=== PATIENT | female | born 1985 | race Caucasian/White ===

== ENCOUNTER 2020-01-01 08:44 | Emergency (ER) | payer MEDICAID ==
[~2020-01-01] VITALS: Ht 160 cm; Wt 56.2 kg
[2020-01-01 08:55] VITALS: BP_SYST 142
--- NOTE | 2020-01-01 09:04 | NUR ---
Patient to ER bed 5 to gown for evaluation. Side rails up. Report given to MASON Conteh.
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
--- NOTE | 2020-01-01 09:06 | NUR ---
ER Dr. Chung Teran at bedside examining patient.
--- NOTE | 2020-01-01 09:15 | NUR ---
X-ray done at bedside as ordered by Dr. Chung Teran. Patient tolerated the procedure well.
--- NOTE | 2020-01-01 09:20 | NUR ---
administrative technician at bedside collecting blood specimen as ordered by Dr. Chung Teran. Patient tolerated the procedure well.
[2020-01-01 09:57] LABS: BASOPHILS % (AUTO) 0.2 % (0.0-2.0); EOSINOPHILS % (AUTO) 0.1 % (0.0-4.0); HEMATOCRIT 35.4 % (36-48); HEMOGLOBIN 11.6 g/dL (12.0-16.0); LYMPHOCYTES # (AUTO) 1.4 K/uL (1.0-5.5); LYMPHOCYTES % (AUTO) 20.1 % (20.5-51.5); MEAN CORPUSCULAR HEMOGLOBIN 27 pg (27-31); MEAN CORPUSCULAR HGB CONC 33 % (32-36); MEAN CORPUSCULAR VOLUME 82 fL (79.0-98.0); MONOCYTES # (AUTO) 0.5 K/uL (0.0-1.0); MONOCYTES % (AUTO) 7.3 % (1.7-9.3); NEUTROPHILS # (AUTO) 4.9 K/uL (1.8-7.7); NEUTROPHILS % (AUTO) 72.3 % (40.0-70.0); PLATELET COUNT (AUTO) 199 K/uL (130-430); RED BLOOD CELL COUNT(AUTO) 4.33 MIL/uL (4.2-6.2); RED CELL DISTRIBUTION WIDTH 17.6 % (9.0-15.0); WHITE BLOOD COUNT (AUTO) 6.8 K/uL (4.8-10.8)
[2020-01-01 10:04] LABS: INR 1.3 (0.8-1.2); PROTHROMBIN TIME 13.3 SECS (9.5-12.5)
[2020-01-01 10:14] LABS: ANION GAP 11 (5-15); CALCIUM 8.9 mg/dL (8.4-11.0); CHLORIDE 104 mmol/L (98-107); CREATININE 0.67 mg/dL (0.55-1.30); GLUCOSE 102 mg/dL (70-99); POTASSIUM 3.6 mmol/L (3.5-5.1); SODIUM SERUM 137 mmol/L (136-145); UREA NITROGEN, BLOOD 13 mg/dL (8-21)
[2020-01-01 10:19] LABS: GFR AFRICAN AMERICAN 130 mL/min (>90)
[2020-01-01 10:20] LABS: ALANINE AMINOTRANSFERASE 64 U/L (12-78); ALBUMIN 4.2 g/dL (3.4-4.8); ASPARTATE AMINOTRANSFERASE 36 U/L (10-37); TOTAL BILIRUBIN 0.5 mg/dL (0.0-1.0)
[2020-01-01 10:44] LABS: C-REACTIVE PROTEIN QUANT < 0.2 mg/dL (0-0.5)
[2020-01-01] MEDS ORDERED: DIPH-TET-PERTUS Vaccine 0.5 ML VIAL (ADACEL) I.M. ONE (10:45)
[2020-01-01] MEDS ORDERED: BACITRACIN 1 GM OINT TP ONE (10:45)
[2020-01-01] MEDS ORDERED: HYDROcodone/ACETAMIN 5-325 MG TAB (NORCO/ VICODIN) PO ONE (11:45)
--- NOTE | 2020-01-01 12:20 | NUR ---
Food is provided.
[2020-01-01] MEDS ORDERED: HYDROcodone/ACETAMIN 5-325 MG TAB (NORCO/ VICODIN) ONE (12:25)
[2020-01-01 12:30] VITALS: BP_SYST 142
--- NOTE | 2020-01-01 12:30 | NUR ---
Patient given written and verbal discharge instructions and verbalizes understanding. ER MD discussed with patient the results and treatment provided. Patient in stable condition. ID arm band removed. Rx of Clindamycin given. Patient educated on pain management and to follow up with PMD. Pain Scale 0/10. Opportunity for questions provided and answered. Medication side effect fact sheet provided.
--- NOTE | 2020-01-01 14:10 | NUR ---
Cutting Torch Operator: pt. notification ENGINE LATHE SET UP OPERATOR TOOL received pt. notification from ED re. homeless pt. ENGINE LAT[employer] SET UP OPERATOR TOOL looked up the case, there were sparse notes as pt. had just arrived. ENGINE LATHE SET UP OPERATOR TOOL will wait to gather more info. ENGINE [employer] SET UP OPERATOR TOOL retrieved msgs from absent co-workers phone. creative services director asked if SW can come see pt. ENGINE LATHE SET UP OPERATOR TOOL called Rn who informed ENGINE LATHE SET UP OPERATOR TOOL that pt. has left, was homeless and a homeless packet of resources was given to pt. prior to d/c.
== END 2020-01-01 12:30 | disposition home or self-care (01) ==
LOC: SED 08:44
DX: S51.802A Unspecified open wound of left forearm, initial encounter (principal); Z88.6 Allergy status to analgesic agent; V49.9XXA Car occupant (driver) (passenger) injured in unspecified traffic accident, initial encounter; Y93.89 Activity, other specified; Y92.89 Other specified places as the place of occurrence of the external cause; Y99.8 Other external cause status
CPT/HCPCS: 36415; 73090; 80053; 83605; 84703; 85025; 85610-TC; 85730-TC; 86140; 99284